=== PATIENT | male | born 1975 | race Caucasian/White ===

== ENCOUNTER 2018-10-03 07:49 | Emergency (ER) | payer MEDICAID, OTHER ==
[2018-10-03] MEDS ORDERED: LIDOCAINE 1%-EPI 1:100000 30 ML MDV SUBQ STA (08:20)
[2018-10-03] MEDS ORDERED: LIDOCAINE 1%-EPI 1:100000 30 ML MDV ONE (08:24)
[2018-10-03] MEDS ORDERED: cephALEXin 250 MG CAPSULE PO STA (08:52)
--- NOTE | 2018-10-03 08:54 | ED Physician Documentation ---
PD HPI SKIN - Stated complaint Stated Complaint: LUMP ON RT HIP - Chief complaint Chief Complaint: Wound - History obtained from History obtained from: Patient - History of Present Illness Timing - onset: How many days ago (2) Timing - details: Still present Location: Other (Right iliac region) Quality / character: Painful, Swelling Contributing factors: Other (IVDA) Similar symptoms before: Diagnosis (Past history of abscess in same area.) - Additional information Additional information: The patient is a 43-year-old male who has history of IV heroin abuse, who presents with painful swelling at his right iliac region. It began swelling 2 days ago and has rapidly increased since that time. He denies fever, chills, abdominal pain, nausea or vomiting. He has a history of similar swelling about 2 months ago, culminating in spontaneous drainage of an abscess. He denies history of MRSA. Review of Systems Constitutional: denies: Fever, Chills Throat: denies: Sore throat Cardiac: denies: Chest pain / pressure Respiratory: denies: Dyspnea, Cough GI: denies: Abdominal Pain, Nausea, Vomiting Skin: reports: Other (Abscess) Musculoskeletal: reports: Extremity swelling (Right iliac region.). denies: Back pain Neurologic: denies: Focal weakness, Numbness PD PAST MEDICAL HISTORY - Past Medical History Cardiovascular: None Endocrine/Autoimmune: None - Past Surgical History Past Surgical History: Yes Ortho: Spine surgery - Present Medications Home Medications: Ambulatory Orders Medication Instructions Recorded Confirmed cephALEXin [Cephalexin] 500 mg PO TID #15 tablet 10/03/18 - Allergies Allergies/Adverse Reactions: Allergies Allergy/AdvReac Type Severity Reaction Status Date / Time acetaminophen AdvReac upset Verified 10/03/18 08:05 stomach - Social History Does the pt smoke?: Yes Smoking Status: Current every day smoker Does the pt drink ETOH?: Yes Does the pt have substance abuse?: Yes Substance Use and Type: Heroin - Immunizations Immunizations are current?: Yes - POLST Patient has POLST: No PD ED PE NORMAL - Vitals Vital signs reviewed: Yes (Hypertensive) - General General: Alert and oriented X 3, Well developed/nourished - HEENT HEENT: Atraumatic - Neck Neck: No adenopathy - Cardiac Cardiac: RRR - Respiratory Respiratory: No respiratory distress, Clear bilaterally - Abdomen Abdomen: Soft, Non tender - Back Back: No CVA TTP - Derm Derm: No rash, Other (Large swollen area over right iliac wing, with associated fluctuance and tenderness to palpation.) - Extremities Extremities: No edema, No calf tenderness / cord - Neuro Neuro: Alert and oriented X 3, No motor deficit, No sensory deficit Results - Vitals Vitals: Oxygen O2 Source Room air - Labs Labs: Microbiology 10/03/18 08:35 Wound Culture - Preliminary Abscess Procedures - Abscess I&D (location) right hip Preparation: Betadine, Lidocaine 1%, With epi Incision: Incised with scalpel, Needle aspiration, Purulent drainage, Loculations broken, Irrigated, Packed, Culture obtained Other: Pt tolerated well, Dressing applied, Antibiotic prescribed PD MEDICAL DECISION MAKING - ED course Complexity details: considered differential, d/w patient ED course: The patient's presentation is significant for abscess over the right iliac wing, associated with heroin addiction. There is no clinical evidence of systemic infection. Treatment in the emergency department included incision and drainage of the abscess, and administration of cephalexin 500 mg orally. He is being discharged with prescription for cephalexin. I offered consultation with medical claims manager to address his heroin addiction, but he declined. I discussed with him the expected course of healing, antibiotic treatment and outpatient follow-up, as well as potentially worrisome signs or symptoms that should prompt reevaluation in the emergency department. Departure - Departure Disposition: 01 Home, Self Care Clinical Impression: Abscess Condition: Stable Instructions: ED Abscess IandD Follow-Up: [facility] [Provider Group] Prescriptions: cephALEXin [Cephalexin] 500 mg PO TID #15 tablet Comments: Begin removing the packing from the abscess wound on the third day. Remove about 6 inches daily, until the packing has been completely removed. Take cephalexin 3 times daily as prescribed. You should follow-up with a primary physician. Call to schedule an appointment. Return to the emergency department if you develop increasing evidence of infection, if you need help removing the packing, or otherwise worsening symptoms. Discharge Date/Time: 10/03/18 09:13
[2018-10-03 09:00] VITALS: BP 140/95
== END 2018-10-03 09:13 | disposition home or self-care (01) ==
LOC: ED 07:49
DX: L02.415 Cutaneous abscess of right lower limb (principal); F11.10 Opioid abuse, uncomplicated
CPT/HCPCS: 10060; 87070; 87205; 99283; A9270

== ENCOUNTER 2019-10-12 13:24 | Outpatient (CLI) | payer OTHER, MEDICAID ==
--- NOTE | 2019-10-13 13:32 | XRAY Report ---
Reason: NECK BACK PAIN, CERVICAL THORACIC SPINE Procedure Date: 10/12/2019 Accession Number: [id number] / [id number] Procedure: XRS - Thoracic Spine 3 View CPT Code: Final Report FULL RESULT: EXAM: THORACIC SPINE RADIOGRAPHY EXAM DATE: 10/12/2019 02:04 PM. CLINICAL HISTORY: NECK BACK PAIN, CERVICAL THORACIC SPINE. COMPARISON: None. TECHNIQUE: 3 views. FINDINGS: Alignment: Normal. No spondylolisthesis or scoliosis. Bones: No fractures or bone lesions. Disks: Multilevel mild disk height loss. Soft Tissues: Normal. The visualized lungs and cardiomediastinal silhouette are normal. IMPRESSION: 1. No evidence for acute thoracic spine fractures. 2. Multilevel mild degenerative disk disease noted. RADIA
--- NOTE | 2019-10-13 13:35 | XRAY Report ---
Reason: NECK BACK PAIN, CERVICAL THORACIC SPINE Procedure Date: 10/12/2019 Accession Number: [id number] / [id number] Procedure: XRS - Cervical Spine 2 View CPT Code: Final Report FULL RESULT: EXAM: CERVICAL SPINE RADIOGRAPHY EXAM DATE: 10/12/2019 02:04 PM. CLINICAL HISTORY: NECK BACK PAIN, CERVICAL THORACIC SPINE. COMPARISONS: XR CERVICAL SPINE 2 OR 3 VIEWS 04/06/2008 12:11 PM. TECHNIQUE: 3 views. FINDINGS: Alignment: Normal. No spondylolisthesis or scoliosis. Bones: The cervical vertebral bodies and posterior elements are well visualized from the skull base through C7-T1. No fractures or bone lesions. Disks: Normal. Disk heights are maintained. Facets: No degenerative disease. Soft Tissues: Normal. No prevertebral soft tissue swelling. The visualized lung apices are clear. IMPRESSION: Normal cervical spine radiography. RADIA
== END 2019-10-12 13:25 | disposition home or self-care (01) ==
LOC: DI.S 13:24
PROVIDERS: ATTEND Family Medicine
DX: M51.34 Other intervertebral disc degeneration, thoracic region (principal)
CPT/HCPCS: 72040; 72072

== ENCOUNTER 2022-02-01 16:01 | Outpatient (CLI) | payer MEDICAID | END 2022-02-01 16:02 | disposition home or self-care (01) | LOC: LAB.S 16:01 | PROVIDERS: ATTEND Physician Assistant | DX: Z53.9 Procedure and treatment not carried out, unspecified reason (principal) | CPT/HCPCS: 87902 ==

== ENCOUNTER 2022-02-06 09:07 | Outpatient (CLI) | payer MEDICAID | END 2022-02-06 09:08 | disposition home or self-care (01) | LOC: LAB.S 09:07 | PROVIDERS: ATTEND Physician Assistant | DX: B18.2 Chronic viral hepatitis C (principal) | CPT/HCPCS: 36415; 81599; 87522 ==

== ENCOUNTER 2023-06-25 18:51 | Inpatient (IN) | payer MEDICAID ==
[2023-06-25 19:13] LABS: BASOPHILS # (AUTO) 0.1 10^3/uL (0.0-0.1); BASOPHILS % (AUTO) 0.7 %; EOSINOPHILS # (AUTO) 0.2 10^3/uL (0.0-0.7); EOSINOPHILS % (AUTO) 1.2 %; LYMPHOCYTES # (AUTO) 1.7 10^3/uL (1.5-3.5); LYMPHOCYTES % (AUTO) 12.2 %; MEAN CORPUSCULAR HEMOGLOBIN 25.2 pg (27.0-31.0); MEAN CORPUSCULAR VOLUME 86.9 fL (80.0-94.0); MEAN PLATELET VOLUME 9.5 fL (7.4-11.4); MONOCYTES # (AUTO) 0.7 10^3/uL (0.0-1.0); MONOCYTES % (AUTO) 4.8 %; NEUTROPHILS % (AUTO) 80.6 %; PLT - PLATELET COUNT 687 10^3/uL (130-450); RED BLOOD COUNT 2.22 10^6/uL (4.70-6.10); RED CELL DISTRIBUTION WIDTH 18.1 % (12.0-15.0); WHITE BLOOD COUNT 13.7 x10^3/uL (4.8-10.8)
[2023-06-25 19:16] LABS: HGB - HEMOGLOBIN 5.6 g/dL (14.0-18.0)
[2023-06-25 19:17] LABS: HCT - HEMATOCRIT 19.3 % (42.0-52.0)
[2023-06-25 19:24] LABS: ALBUMIN 2.1 g/dL (3.2-5.5); ALBUMIN/GLOBULIN RATIO 0.6 (1.0-2.2); BILIRUBIN,TOTAL 0.1 mg/dL (0.2-1.0); CALCIUM 8.1 mg/dL (8.5-10.3); CREATININE 1.3 mg/dL (0.6-1.3); POTASSIUM 4.3 mmol/L (3.5-4.5); TOTAL PROTEIN 5.4 g/dL (6.4-8.9)
[2023-06-25 19:34] LABS: PARTIAL THROMBOPLASTIN TIME 32.6 secs (24.9-33.3)
[2023-06-25 19:38] LABS: INR 1.1 (0.8-1.2); PT - PROTHROMBIN TIME 11.5 secs (9.9-12.6)
--- NOTE | 2023-06-25 20:47 | ED Physician Documentation ---
History of Present Illness - Stated complaint Stated Complaint: ABNORMAL LAB WORK - Chief complaint Chief Complaint: Ext Problem - History obtained from History obtained from: Patient - History of Present Illness Timing: Today Pain level max: 0 Pain level now: 0 - Additonal information Additional information: Patient is a 48-year-old male who presents to the emergency department complaining of a low hemoglobin found at the walk-in clinic earlier today. He states that he has noticed dark stools for the past several weeks. He states that as a child he had a colonoscopy and had polyps removed for bleeding. He has not had a colonoscopy since that time. He states that he has a remote history of hepatitis C, but on repeat testing with a returned materials inspector recently, he was found to have no evidence of hepatitis C infection and was told that his body had "fought it off". He denies any history of liver disease or kidney disease. He states that he has felt more fatigued and weaker than usual. He denies any alcohol use, but does use heroin. He did go to detox last week, but used heroin again this morning. No fevers. No chills. No abdominal pain, back pain. No dyspnea, hemoptysis. No emesis. No diarrhea. Patient does not take any medications at home. Review of Systems Constitutional: denies: Fever, Chills Nose: denies: Rhinorrhea / runny nose, Congestion Cardiac: denies: Chest pain / pressure, Palpitations Respiratory: denies: Dyspnea, Cough GI: denies: Abdominal Pain, Nausea, Vomiting, Diarrhea Skin: denies: Rash Musculoskeletal: denies: Neck pain, Back pain Neurologic: denies: Headache PD PAST MEDICAL HISTORY - Past Medical History Cardiovascular: None Endocrine/Autoimmune: None - Past Surgical History Past Surgical History: Yes Ortho: Spine surgery - Present Medications Home Medications: Ambulatory Orders Medication Instructions Recorded Confirmed No Known Home Medications 06/25/23 06/25/23 - Allergies Allergies/Adverse Reactions: Allergies Allergy/AdvReac Type Severity Reaction Status Date / Time acetaminophen AdvReac upset Verified 06/25/23 19:19 stomach - Social History Does the pt smoke?: Yes Smoking Status: Current every day smoker Does the pt drink ETOH?: Yes Does the pt have substance abuse?: Yes - Immunizations Immunizations are current?: Yes - POLST Patient has POLST: No PD ED PE NORMAL - Vitals Vital signs reviewed: Yes - General General: Alert and oriented X 3, No acute distress, Other (Pale appearing) - HEENT HEENT: Moist mucous membranes - Neck Neck: Supple, no meningeal sign - Cardiac Cardiac: RRR - Respiratory Respiratory: No respiratory distress, Clear bilaterally - Abdomen Abdomen: Soft, Non tender, Non distended - Rectal Rectal: Pt declined - Derm Derm: Warm and dry - Extremities Extremities: Other (1+ bilateral lower extremity edema.) - Neuro Neuro: Alert and oriented X 3 - Psych Psych: Normal mood, Normal affect Results - Vitals Vitals: Vital Signs - 24 hr 06/25/23 06/25/23 06/25/23 19:16 19:21 20:03 Heart Rate 102 H 94 98 Respiratory 18 17 18 Rate Blood Pressure 160/84 H O2 Saturation 97 95 100 06/25/23 20:33 Heart Rate 88 Respiratory 18 Rate Blood Pressure 155/90 H O2 Saturation 98 Oxygen O2 Source Room air - EKG (time done) 1936 EKG releavant findings:: EKG personally interpreted by author of this note. Relevant findings are: Rate: Rate (enter#) (94) Rhythm: NSR [place]: Normal Intervals: Normal [place] QRS: Normal Ischemia: Normal ST segments - Labs Labs: Laboratory Tests 06/25/23 06/25/23 06/25/23 19:05 19:05 19:05 WBC 13.7 H RBC 2.22 L Hgb 5.6 L* Hct 19.3 L* MCV 86.9 MCH 25.2 L MCHC 29.0 L RDW 18.1 H Plt Count 687 H MPV 9.5 Neut # (Auto) 11.0 H Lymph # (Auto) 1.7 Valley # (Auto) 0.7 Eos # (Auto) 0.2 Baso # (Auto) 0.1 Absolute Nucleated RBC 0.00 Nucleated RBC % 0.0 PT INR APTT Sodium 137 Potassium 4.3 Chloride 107 Carbon Dioxide 25 Anion Gap 5.0 L BUN 22 H Creatinine 1.3 Estimated GFR (MDRD) 58 L Glucose 119 H Calcium 8.1 L Total Bilirubin 0.1 L AST 12 ALT 10 Alkaline Phosphatase 88 Total Protein 5.4 L Albumin 2.1 L Globulin 3.3 Albumin/Globulin Ratio 0.6 L Lipase 14 Blood Type A POSITIVE Blood Type Recheck Antibody Screen NEGATIVE Crossmatch IS Only See Detail 06/25/23 06/25/23 19:05 20:13 WBC RBC Hgb Hct MCV MCH MCHC RDW Plt Count MPV Neut # (Auto) Lymph # (Auto) Valley # (Auto) Eos # (Auto) Baso # (Auto) Absolute Nucleated RBC Nucleated RBC % PT 11.5 INR 1.1 APTT 32.6 Sodium Potassium Chloride Carbon Dioxide Anion Gap BUN Creatinine Estimated GFR (MDRD) Glucose Calcium Total Bilirubin AST ALT Alkaline Phosphatase Total Protein Albumin Globulin Albumin/Globulin Ratio Lipase Blood Type Blood Type Recheck A POSITIVE Antibody Screen Crossmatch IS Only PD Medical Decision Making - ED course Complexity details: reviewed results, re-evaluated patient, considered differential, d/w patient, d/w x ray consultant ED course: Discussed the case with Dr. Lazcano, general surgery on-call, will plan for endoscopy/colonoscopy tomorrow. Discussed the case with the telehospitalist who accepts. Patient was given IV Protonix, IV fluids. Blood products ordered. Abdomen is soft, nontender nondistended. Unclear etiology of the low protein levels? Patient with significant anemia, hemoglobin 5.6. White blood cell count and platelets are normal. Coags are normal. LFTs do not show any significant abnormalities. Urinalysis is pending at the time of admission. This document was made in part using voice recognition software. While efforts are made to proofread this document, sound alike and grammatical errors may occur. Departure - Departure Disposition: [address] [facility] DC/Xfer Clinical Impression: Hypoalbuminemia Anemia Qualifiers: Anemia type: unspecified type Qualified Code(s): D64.9 - Anemia, unspecified GI bleed Qualifiers: GI bleed type/associated pathology: unspecified gastrointestinal hemorrhage type Qualified Code(s): K92.2 - Gastrointestinal hemorrhage, unspecified Condition: Stable
[2023-06-25] MEDS ORDERED: PANTOPRAZOLE 40 MG VIAL IVP STA (21:00)
[2023-06-25] MEDS ORDERED: ONDANSETRON 4 MG/2 ML VIAL IVP PRN (21:04)
--- NOTE | 2023-06-25 21:12 | HISTORY & PHYSICAL EXAMINATION ---
Chief Complaint - Chief Complaint Chief Complaint: Anemia History of Present Illness - History of Present Illness HPI Comment/Other: 48 Y old male with PMH heroin abuse, Hep C was sent to ER from walk in clinic due to anemia. Pt c/o weakness and dizziness and dark coloured stool. He went to walk in clinic where labs showed Hemoglobin 5. C/O SOB. Denies chest pain, fever, TY, nausea, vomiting, symptoms On presentaion, Afebrile. BP accelerated Labs showed WBC 12, Hb 5.6 Type and screen done In ER , pt was given protonix iv As per ER physician (Dr Lazaro), he consulted with surgeon electronic train control technician and plan is for EGD in am Pt is admitted due to GI bleeding, melena, acute blodd loss anemia History - Past Medical History Cardiovascular: reports: None Endocrine/Autoimmune: reports: None MRSA Hx?: Yes - Past Surgical History Ortho: reports: Spine surgery - POLST Patient has POLST: No Meds/Allgy - Home Medications Home Medications: Ambulatory Orders Medication Instructions Recorded Confirmed No Known Home Medications 06/25/23 06/25/23 - Allergies Allergies/Adverse Reactions: Allergies Allergy/AdvReac Type Severity Reaction Status Date / Time acetaminophen AdvReac upset Verified 06/25/23 19:19 stomach Review of Systems - Other Findings Other Findings: 10 point systems were reviewed and were negative except mentioed in HPI Exam - Vital Signs Vital Signs: Vital Signs x48h Pulse Resp BP Pulse Ox 06/25/23 20:33 88 18 155/90 H 98 06/25/23 20:03 98 18 100 06/25/23 19:21 94 17 95 06/25/23 19:16 102 H 18 160/84 H 97 - Physical Exam General Appearance: positive: No acute distress Eyes Bilateral: positive: Normal inspection ENT: positive: ENT inspection nml Neck: positive: Nml inspection Respiratory: positive: Chest non-tender Cardiovascular: positive: Regular rate & rhythm Abdomen: positive: Non-tender, Nml bowel sounds Skin: positive: No rash Extremities: positive: No pedal edema Neurologic/Psychiatric: positive: Oriented x3, Motor nml Conclusion/Plan - Lab Results Fish Bones: 06/25/23 19:05 06/25/23 19:05 - Other Other Results/Comments: A: GI bleed Melena Acute blood loss anemia Leukocytsis H/O heroin abuse Hep C Plan: Admit in ICU NPO Start protonix gtt Transfuse 2 units of PRBC Monitor H/H As per ER physician (Dr Lazaro) he has consulted with surgeon electronic train control technician and plan is for EGD in am Repeat CBC, BMP in am Monitor for withdrawl DVT prophylaxic: SCD Full code pt is admitted as inpatient as more than 2 midnight stay is expected
[2023-06-25] MEDS ORDERED: PANTOPRAZOLE 40 MG VIAL ONE (21:29)
[2023-06-25] MEDS: PANTOPRAZOLE 80 MG in SODIUM CHLORIDE 0.9% 100ML 100 ML IV SCH (21:36)
[2023-06-25 22:57] LABS: BILIRUBIN,URINE NEGATIVE (NEGATIVE); GLUCOSE, URINE (UA) NEGATIVE (NEGATIVE); KETONES,URINE (UA) NEGATIVE (NEGATIVE); LEUKOCYTE ESTERASE, URINE NEGATIVE (NEGATIVE); NITRITE,URINE NEGATIVE (NEGATIVE); OCCULT BLOOD,URINE SMALL (NEGATIVE); PROTEIN,URINE >=300 mg/dL (NEGATIVE); UROBILINOGEN,URINE 0.2 (NORMAL) E.U./dL (NORMAL)
[2023-06-25 23:01] LABS: CLARITY,URINE CLEAR (CLEAR)
[2023-06-25 23:05] LABS: BACTERIA,URINE None Seen /HPF (None Seen); RBC,URINE 0-5 /HPF (0-5); SQUAMOUS EPITHELIAL CELL,UR NONE SEEN (<= Few); WBC,URINE 0-3 /HPF (0-3)
[2023-06-25 23:06] LABS: CASTS, URINE 6-10 Granular Casts /LPF
[2023-06-26] MEDS: NICOTINE 21 MG PATCH TOP SCH ×2 (00:25→11:00)
[2023-06-26] MEDS: SODIUM CHLORIDE FLUSH 0.9% 10 ML SYRINGE IVP SCH ×5 (00:26→22:57)
[2023-06-26 05:38] LABS: BASOPHILS # (AUTO) 0.1 10^3/uL (0.0-0.1); BASOPHILS % (AUTO) 0.7 %; EOSINOPHILS # (AUTO) 0.3 10^3/uL (0.0-0.7); EOSINOPHILS % (AUTO) 2.8 %; LYMPHOCYTES # (AUTO) 2.7 10^3/uL (1.5-3.5); LYMPHOCYTES % (AUTO) 28.3 %; MEAN CORPUSCULAR HEMOGLOBIN 24.9 pg (27.0-31.0); MEAN CORPUSCULAR HGB CONC 28.3 g/dL (32.0-36.0); MEAN CORPUSCULAR VOLUME 87.8 fL (80.0-94.0); MEAN PLATELET VOLUME 9.7 fL (7.4-11.4); MONOCYTES # (AUTO) 0.7 10^3/uL (0.0-1.0); MONOCYTES % (AUTO) 7.3 %; NEUTROPHILS # (AUTO) 5.7 10^3/uL (1.5-6.6); NEUTROPHILS % (AUTO) 60.5 %; PLT - PLATELET COUNT 567 10^3/uL (130-450); RED BLOOD COUNT 1.89 10^6/uL (4.70-6.10); RED CELL DISTRIBUTION WIDTH 18.3 % (12.0-15.0); WHITE BLOOD COUNT 9.4 x10^3/uL (4.8-10.8)
[2023-06-26 05:42] LABS: HGB - HEMOGLOBIN 4.7 g/dL (14.0-18.0)
[2023-06-26 05:43] LABS: HCT - HEMATOCRIT 16.6 % (42.0-52.0)
[2023-06-26 05:56] LABS: VBG PH 7.446 (7.31-7.41)
[2023-06-26 05:57] LABS: CALCIUM, IONIZED 1.03 mmol/L (1.15-1.33)
[2023-06-26 06:11] LABS: MAGNESIUM 1.9 mg/dL (1.7-2.3); PHOSPHORUS 4.2 mg/dL (2.5-5.0)
[2023-06-26 06:12] LABS: CALCIUM 7.5 mg/dL (8.5-10.3); CREATININE 1.2 mg/dL (0.6-1.3); POTASSIUM 4.2 mmol/L (3.5-4.5)
[2023-06-26] MEDS ORDERED: CALCIUM GLUC 1,000MG/50ML-NACL 1,000 MG/50 ML BAG IV ONE ×2 (06:29→13:54)
--- NOTE | 2023-06-26 06:48 | PROVIDER PROGRESS NOTE ---
Inverted Block Operator Note - Inverted Block Operator Note Inverted Block Operator Note: RNB paged "Pt admitted for abnl lab work. Critical lab value: Hgb 4.7,., Hct 16.6. Pt received 1u PRBC last night (ED order).." Hgb/Hct confirmed 4.7. transfuse two units stat. day team to followup Chichi Reece DO Internal Medicine Sound
--- NOTE | 2023-06-26 08:51 | ANESTHESIA PROCEDURE NOTE ---
Anesth Central Line Template - Central Line Central Line Preparation: Consent Obtained, Time out completed, Ultrasound used, Sterile prep and drape Central line location: Right IJ Central line type: Triple lumen Central line catheter tip site resides: Superior vena cava (SVC) Central line aftercare: Chlorhexidine disc placed, Secured, Placement confirmed, No complications, Pt tolerated well Other Info/Details: Right neck prepped with chlorohexadine. Full sterile drape, gown, gloves mask utilized. Right neck skin localized with 5ml of 1% lidocaine. #18G needle inserted under ultrasound guidance and directed towards right IJ vein, positive aspiration of blood. Wire advanced with ease and placement in the right IJ confirmed with ultrasound. After dilation, a triple lumen catheter was inserted and placed at 18 cm. All 3 ports aspirate blood and flush with ease. Line sutured in place. Chest xray shows tip in the SVC. Patient tolerated well.
--- NOTE | 2023-06-26 09:36 | XRAY Report ---
PROCEDURE: Chest for Line Placement INDICATIONS: New central line TECHNIQUE: One view of the chest was acquired. COMPARISON: None. FINDINGS: Surgical changes and devices: None. Lungs and pleura: No pleural effusions or pneumothorax. Lungs are clear. Mediastinum: Mediastinal contours appear normal. Heart size is normal. Bones and chest wall: No suspicious bony lesions. Overlying soft tissues appear unremarkable. IMPRESSION: No acute cardiopulmonary process. Reviewed by: Kristine Smith MD on 06/26/2023 9:34 AM PDT Approved by: Kristine Smith MD on 06/26/2023 9:34 AM PDT Station ID: [id number]
[2023-06-26] MEDS ORDERED: PROPOFOL 500 MG/50 ML 500 MG/50 ML VIAL ONE (09:41)
--- NOTE | 2023-06-26 09:41 | CONSULTATION NOTE ---
Referring Provider Name of Referring Provider:: Carlitos Eagle) Consult Date: 06/26/23 Chief Complaint - Chief Complaint Chief Complaint: I feel awful History of Present Illness - Admitted From Admitted From:: ED - History Obtained From Records Reviewed: yes History obtained from: patient, ED provider, chart - History of Present Illness HPI Comment/Other: This is a 48-year-old gentleman with a 1 week history of intermittent melanotic stool. He also reports feeling very fatigued, occasionally lightheaded with activity, and "just terrible" for the last 2 weeks. He denies any heartburn or abdominal pain. He denies nausea or vomiting at baseline, but did have some nausea and vomiting while in detox last week. He has intermittent constipation and diarrhea depending on how much opiates he has used in the last day. He reports a very remote history of colonoscopy as a child for gastrointestinal bleeding at which time he reports he had polyps removed. He has not had a colonoscopy as an adult. He denies any history of upper endoscopy, GERD, or heartburn. The patient endorses smoking 1 pack of cigarettes per day. He denies any alcohol use. He endorses occasional NSAID use, but less than 1 pill/week on average. He denies taking aspirin or any other blood thinning medications. He has a longstanding history of opiate use disorder, and injects heroin on a daily basis. He attempted to go to detox to treat his opiate use disorder last , but was unable to tolerate withdrawal symptoms and left on Saturday. He also notes he started experiencing severe bilateral lower extremity edema while in detox last week, which she feels is improving. The patient voices concern about going into withdrawal again while in the hospital. History - Past Medical History Cardiovascular: reports: None Endocrine/Autoimmune: reports: None GI: reports: GI bleed (Remote, as a child) MRSA Hx?: Yes - Past Surgical History General: reports: Colonoscopy (As a child) Ortho: reports: Spine surgery - Family & Social History Family History Comment/Other: Patient denies any significant family history of cancer, heart attack, diabetes, or stroke. Living arrangement: Unknown - Substance History Abuse: Recurrent use of substance despite neg consequences: Opioid Dependence: Experiences withdrawal or developed tolerances: Opioid Tobacco Details: Cigarettes (1 pack/day) - POLST Patient has POLST: No Meds/Allgy - Home Medications Home Medications: Ambulatory Orders Medication Instructions Recorded Confirmed No Known Home Medications 06/25/23 06/25/23 - Allergies Allergies/Adverse Reactions: Allergies Allergy/AdvReac Type Severity Reaction Status Date / Time acetaminophen AdvReac upset Verified 06/25/23 19:19 stomach Review of Systems - Constitutional Constitutional: reports: Other (A complete 10 point review of symptoms is otherwise negative except for that noted in HPI and PMH.) Exam - Vital Signs Vital Signs: Vital Signs x48h Temp Pulse Resp BP Pulse Ox 06/26/23 09:00 86 10 L 154/106 H 99 06/26/23 08:00 36.9 C 79 11 L 138/60 H 98 06/26/23 07:00 90 10 L 152/85 H 98 06/26/23 06:00 36.8 C 86 10 L 145/78 H 97 06/26/23 05:00 73 10 L 122/69 98 06/26/23 04:00 81 15 122/74 96 06/26/23 03:00 80 13 134/82 H 97 06/26/23 02:58 36.6 C 81 13 134/82 H 97 06/26/23 02:00 85 14 137/74 H 96 - Physical Exam General Appearance: positive: No acute distress, Alert Eyes Bilateral: positive: Normal inspection, PERRL, EOMI ENT: positive: No signs of dehydration Neck: positive: Trachea midline Respiratory: positive: No respiratory distress Cardiovascular: positive: Regular rate & rhythm Peripheral Pulses: positive: 2+ Abdomen: positive: Non-tender. negative: Guarding, Rebound Rectal: positive: Stool - heme POS Skin: positive: No rash Extremities: positive: Non-tender, Full ROM, Pedal edema (2+ B LE) Neurologic/Psychiatric: positive: Oriented x3 Conclusion and Plan - Lab Results Laboratory Results 06/26/23 05:28: VBG pH 7.446 H, Ionized Calcium 1.03 L 06/26/23 05:28: Phosphorus 4.2, Magnesium 1.9 06/26/23 05:28: Sodium 138, Potassium 4.2, Chloride 108, Carbon Dioxide 26, Anion Gap 4.0 L, BUN 20, Creatinine 1.2, Estimated GFR (MDRD) 64 L, Glucose 122 H, Calcium 7.5 L 06/26/23 05:28: WBC 9.4, RBC 1.89 L, Hgb 4.7 L*, Hct 16.6 L*, MCV 87.8, MCH 24.9 L, MCHC 28.3 L, RDW 18.3 H, Plt Count 567 H, MPV 9.7, Neut # (Auto) 5.7, Lymph # (Auto) 2.7, [place] # (Auto) 0.7, Eos # (Auto) 0.3, Baso # (Auto) 0.1, Absolute Nucleated RBC 0.00, Nucleated RBC % 0.0 06/25/23 22:15: Nasal Screen MRSA (PCR) NEGATIVE 06/25/23 22:15: Urine Color YELLOW, Urine Clarity CLEAR, Urine pH 6.0, Ur Specific [place] 1.025, Urine Protein >=300 H, Urine Glucose (UA) NEGATIVE, Urine Ketones NEGATIVE, Urine Occult Blood SMALL H, Urine Nitrite NEGATIVE, Urine Bilirubin NEGATIVE, Urine Urobilinogen 0.2 (NORMAL), Ur Leukocyte Esterase NEGATIVE, Urine RBC 0-5, Urine WBC 0-3, Ur Squamous Epith Cells NONE SEEN, Urine Bacteria None Seen, Urine Casts 6-10 Granular Casts, Ur Microscopic Review INDICATED, Urine Culture Comments NOT INDICATED 06/25/23 20:13: Blood Type Recheck A POSITIVE 06/25/23 19:05: PT 11.5, INR 1.1, APTT 32.6 06/25/23 19:05: Blood Type A POSITIVE, Antibody Screen NEGATIVE, Crossmatch IS Only See Detail 06/25/23 19:05: Sodium 137, Potassium 4.3, Chloride 107, Carbon Dioxide 25, Anion Gap 5.0 L, BUN 22 H, Creatinine 1.3, Estimated GFR (MDRD) 58 L, Glucose 119 H, Calcium 8.1 L, Total Bilirubin 0.1 L, AST 12, ALT 10, Alkaline Phosphatase 88, Total Protein 5.4 L, Albumin 2.1 L, Globulin 3.3, Albumin/Globulin Ratio 0.6 L, Lipase 14 06/25/23 19:05: WBC 13.7 H, RBC 2.22 L, Hgb 5.6 L*, Hct 19.3 L*, MCV 86.9, MCH 25.2 L, MCHC 29.0 L, RDW 18.1 H, Plt Count 687 H, MPV 9.5, Neut # (Auto) 11.0 H, Lymph # (Auto) 1.7, Jay # (Auto) 0.7, Eos # (Auto) 0.2, Baso # (Auto) 0.1, Absolute Nucleated RBC 0.00, Nucleated RBC % 0.0 - Consultation Note Consultation Note: This is a 48-year-old male with: 1. Gastrointestinal bleeding with severe anemia The patient has Hemoccult positive stools and reports a history of melena for the last 1 week I suspect suspect the patient's had symptoms for far longer than this given how well compensated he is with his very low hemoglobin. His risk factors for upper GI bleeding including tobacco use and NSAID use. He denies any alcohol use. He denies any history of upper gastrointestinal bleeding. -The patient has been transfused 1 unit of blood. I suspect he will need at least 3 additional units given his hemoglobin on admission. -I discussed the risks, benefits, and alternatives of upper endoscopy including bleeding and perforation. We discussed that this procedure would help us with his diagnosis and treatment plan, but will not change how he is feeling. He voiced understanding, his questions were answered, and he wished to proceed. The patient signed a consent. Plan for emergent upper endoscopy this morning. -I would like the patient to remain n.p.o. until after his procedure. Further diet recommendations pending endoscopic findings. -Agree with IV PPI usage. 2. Opiate use disorder As per primary team We will work to manage his withdrawal symptoms as they arise 3. Bilateral lower extremity edema, low protein -As per primary team Thank you for consulting me in the care of this patient. I will continue to follow him closely.
[2023-06-26] MEDS ORDERED: MIDAZOLAM 2 MG/2 ML VIAL ONE (09:43)
[2023-06-26] MEDS ORDERED: fentaNYL 100 MCG/2 ML VIAL ONE (09:44)
--- NOTE | 2023-06-26 09:51 | ANESTHESIA ---
Pre-Anesthesia VS, & Labs - Diagnosis Anemia, GI Bleed - Procedure EGD Vital Signs: Temp Pulse Resp BP Pulse Ox O2 Flow Rate 36.4 C L 81 14 154/106 H 96 06/26/23 09:41 06/26/23 09:41 06/26/23 09:41 06/26/23 09:41 06/26/23 09:41 Height: 6 ft 3 in Weight (kg): 106.5 kg Body Mass Index: 29.3 BMI Classification: Overweight - NPO >8 hours - Lab Results Current Lab Results: Laboratory Tests 06/26/23 05:28: VBG pH 7.446 H, Ionized Calcium 1.03 L 06/26/23 05:28: Phosphorus 4.2, Magnesium 1.9 06/26/23 05:28: Sodium 138, Potassium 4.2, Chloride 108, Carbon Dioxide 26, A nion Gap 4.0 L, BUN 20, Creatinine 1.2, Estimated GFR (MDRD) 64 L, Glucose 122 H , Calcium 7.5 L 06/26/23 05:28: WBC 9.4, RBC 1.89 L, Hgb 4.7 L*, Hct 16.6 L*, MCV 87.8, MCH 24.9 L, MCHC 28.3 L, RDW 18.3 H, Plt Count 567 H, MPV 9.7, Neut # (Auto) 5.7, Lymph # (Auto) 2.7, [place] # (Auto) 0.7, Eos # (Auto) 0.3, Baso # (Auto) 0.1, Absolute Nuc leated RBC 0.00, Nucleated RBC % 0.0 06/25/23 20:13: Blood Type Recheck A POSITIVE 06/25/23 19:05: PT 11.5, INR 1.1, APTT 32.6 06/25/23 19:05: Blood Type A POSITIVE, Antibody Screen NEGATIVE, Crossmatch IS Only See Detail 06/25/23 19:05: Sodium 137, Potassium 4.3, Chloride 107, Carbon Dioxide 25, Anion Gap 5.0 L, BUN 22 H, Creatinine 1.3, Estimated GFR (MDRD) 58 L, Glucose 119 H, Calcium 8.1 L, Total Bilirubin 0.1 L, AST 12, ALT 10, Alkaline Phos phatase 88, Total Protein 5.4 L, Albumin 2.1 L, Globulin 3.3, Albumin/Globulin Ratio 0.6 L, Lipase 14 06/25/23 19:05: WBC 13.7 H, RBC 2.22 L, Hgb 5.6 L*, Hct 19.3 L*, MCV 86.9, MCH 25.2 L, MCHC 29.0 L, RDW 18.1 H, Plt Count 687 H, MPV 9.5, Neut # (Auto) 11.0 H, Lymph # (Auto) 1.7, [place] # (Auto) 0.7, Eos # (Auto) 0.2, Baso # (Auto) 0.1, Absolute Nucleated RBC 0.00, Nucleated RBC % 0.0 Lab results reviewed: Yes Fish Bones: 06/26/23 05:28 06/26/23 05:28 Home Medications and Allergies Home Medications: Ambulatory Orders No Known Home Medications 06/25/23 Active Medications Pantoprazole Sodium 80 mg/ (Sodium Chloride) 100 mls @ 10 mls/hr IV .Q10H [facility] Last Infusion: 06/26/23 09:19 Dose: 10 mls/hr Nicotine (Nicotine 21 Mg Patch) 1 patch TOP DAILY [facility] Last Admin: 06/26/23 00:25 Dose: 1 patch Ondansetron HCl (Ondansetron 4 Mg/2 Ml Vial) 4 mg IVP Q6HR PRN PRN Reason: Nausea / Vomiting Last Admin: 06/25/23 21:32 Dose: 4 mg Sodium Chloride (Sodium Chloride Flush 0.9% 10 Ml Syringe) 10 ml IVP 0100,0900,1700 [facility] Last Admin: 06/26/23 00:26 Dose: 10 ml Sodium Chloride (Sodium Chloride Flush 0.9% 10 Ml Syringe) 10 ml IVP PRN PRN PRN Reason: NEEDED PER PROVIDER ORDERS No Known Home Medications 06/25/23 Allergies/Adverse Reactions: Allergies Allergy/AdvReac Type Severity Reaction Status Date / Time acetaminophen AdvReac upset Verified 06/25/23 19:19 stomach Anes History & Medical History - Anesthetic History Anesthesia Complications: reports: No previous complications - Medical History Cardiovascular: reports: None Pulmonary: reports: None Gastrointestinal: reports: GI bleed, Hepatitis (Hep C positive) Urinary: reports: None Neuro: reports: None Musculoskeletal: reports: None Endocrine/Autoimmune: reports: None Blood Disorders: reports: Anemia Skin: reports: None Smoking Status: Current every day smoker (1 pack per day) Psychosocial: reports: Opioid (Heroin user, last used 06/25/23) History of Cancer?: No - Surgical History General: reports: Colonoscopy (As a child) Orthopedic: reports: Spine surgery Exam General: Alert, Oriented x3, Cooperative, No acute distress Dental: WNL Mouth Openin Fingerbreadth Neck Mobility: Normal Mallampati classification: III Thyromental Distance: 4-6 cm Mental/Cognitive Status: Alert/Oriented X3, Normal for patient Plan Anesthesia Type: General, Total IV Consent for Procedure(s) Verified and Reviewed: Yes Code Status: Attempt Resuscitation ASA classification: 4-Incapacitating disease Is this case an emergency?: Yes
--- NOTE | 2023-06-26 11:14 | ANESTHESIA POST OP EVALUATION ---
Anesthesia Post Eval - Post Anesthesia Eval Vitals: Last Vital Signs Temp 36.4 C L 06/26/23 11:00 Pulse 81 06/26/23 11:00 Resp 19 06/26/23 11:00 BP 136/73 H 06/26/23 11:00 Pulse Ox 99 06/26/23 11:00 O2 Flow Rate CV Function Including HR & BP: Stable Pain Control: Satisfactory Nausea & Vomiting: Negative Mental Status: Baseline Respiratory Status: Airway Patent Hydration Status: Satisfactory Anesthesia Complications: None
[2023-06-26] MEDS: SODIUM CHLORIDE FLUSH 0.9% 10 ML SYRINGE IVP PRN ×2 (12:30→13:23)
[2023-06-26 12:37] LABS: CALCIUM, IONIZED 1.09 mmol/L (1.15-1.33); VBG PH 7.42 (7.31-7.41)
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
[2023-06-26] MEDS: PANTOPRAZOLE 80 MG in SODIUM CHLORIDE 0.9% 100ML 100 ML IV SCH (13:02)
[2023-06-26 13:33] LABS: MEAN CORPUSCULAR HEMOGLOBIN 25.3 pg (27.0-31.0); MEAN CORPUSCULAR HGB CONC 29.1 g/dL (32.0-36.0); MEAN CORPUSCULAR VOLUME 87.1 fL (80.0-94.0); MEAN PLATELET VOLUME 9.3 fL (7.4-11.4); RED BLOOD COUNT 2.17 10^6/uL (4.70-6.10); RED CELL DISTRIBUTION WIDTH 17.3 % (12.0-15.0); WHITE BLOOD COUNT 7.8 x10^3/uL (4.8-10.8)
[2023-06-26 13:37] LABS: HCT - HEMATOCRIT 18.9 % (42.0-52.0); HGB - HEMOGLOBIN 5.5 g/dL (14.0-18.0)
[2023-06-26] MEDS ORDERED: PANTOPRAZOLE 40 MG TABLET PO SCH (14:00)
[2023-06-26 14:58] LABS: MUDS CUTOFF CONCENTRATIONS CUTOFF CONC BELOW:
[2023-06-26] MEDS ORDERED: BUPRENORPHINE/NALOXONE 8-2 MG TAB SL ONE (15:00)
[2023-06-26] MEDS ORDERED: BUPRENORPHINE/NALOXONE 8-2 MG TAB SL SCH (15:00)
--- NOTE | 2023-06-26 15:15 | Ultrasound Report ---
PROCEDURE: Abdomen Limited INDICATIONS: new anasarca, looking for cirrhosis TECHNIQUE: Real-time focused scanning was performed of the abdomen, with image documentation. COMPARISONS: None. FINDINGS: Liver measures 18 cm. No suspicious focal lesions. No overtly nodular contour. Suspected cholelithiasis versus small polyps largest measuring 6 to 7 mm. CBD measures 5 to 6 mm. Pancreas is not well seen due to bowel gas. Right kidney measures 12 cm. Proximal aorta measures 2 cm. IVC is patent. IMPRESSION: No late findings of cirrhosis on imaging. Possible cholelithiasis and/or small polyps, measuring up to 6 to 7 mm. Consider 12 month ultrasound follow-up. Reviewed by: Rk Pacheco MD on 06/26/2023 3:13 PM PDT Approved by: Rk Pacheco MD on 06/26/2023 3:13 PM PDT Station ID: [id number]
[2023-06-26 15:18] LABS: AMPHETAMINE SCREEN,URINE NEGATIVE (NEGATIVE); BARBITURATE SCREEN,UR NEGATIVE (NEGATIVE); BENZODIAZEPINES SCREEN, URINE NEGATIVE (NEGATIVE); COCAINE SCREEN URINE NEGATIVE (NEGATIVE); METHADONE SCREEN, URINE NEGATIVE (NEGATIVE); METHAMPHETAMINES SCREEN, URINE NEGATIVE (NEGATIVE); OPIATE SCREEN, URINE POSITIVE (NEGATIVE); OXYCODONE SCREEN, URINE NEGATIVE (NEGATIVE); PROPOXYPHENE SCREEN, URINE NEGATIVE (NEGATIVE); THC CANNABINOID SCREEN, URINE NEGATIVE (NEGATIVE); TRICYCLIC ANTIDEPRESSANT,URINE NEGATIVE (NEGATIVE)
[2023-06-26] MEDS: BUPRENORPHINE/NALOXONE 8-2 MG TAB SL PRN ×3 (16:49→23:58)
[2023-06-26 17:13] LABS: FECAL OCCULT BLOOD (FIT) POSITIVE (NEGATIVE)
--- NOTE | 2023-06-26 17:40 | PHARMACY PROGRESS NOTE ---
- Best Possible Medication History Admit Date and Time: 06/25/232103 Processed by: Pharmacy Medication History completed: Yes Patient Interview: Pt unable to participate Secondary Source(s): Pharmacy records, Insurance records, Previous admit records MEDICATION HISTORY IS FROM [facility] FROM REHAB ADMISSION. PT WAS UNABLE TO GIVE A MEDICATION HISTORY As the person ultimately responsible for medication therapy, providers are able to order a medication from an existing home medication list in [facility] via the "Reconcile Routine" prior to Confirmation of that medication by product support specialist. Such practice is discouraged except when the physician, in their clinical judgment, deems that a medical need exists for a medication without regard to previous use.
[2023-06-26] MEDS: DEXMEDETOMIDINE 400 MCG/100 ML 100 ML IV PRN ×2 (19:33→23:42)
[2023-06-26] MEDS: hydrOXYzine 50 MG/ML VIAL IM PRN (19:58)
[2023-06-26] MEDS: PANTOPRAZOLE 40 MG TABLET PO SCH (20:04)
[2023-06-26] MEDS ORDERED: LIDOCAINE PATCH 5% TOP PRN (22:35)
[2023-06-26] MEDS ORDERED: MAG HYDROX/AL HYDROX/SIMETH 30 ML UDC PO PRN (22:37)
[2023-06-26] MEDS ORDERED: diazePAM INJ 5 MG/ML SYRINGE IVP STA (22:41)
[2023-06-27] MEDS: hydrOXYzine 50 MG/ML VIAL IM PRN (01:40)
[2023-06-27] MEDS: DEXMEDETOMIDINE 400 MCG/100 ML 100 ML IV PRN ×2 (02:28→05:35)
[2023-06-27] MEDS: BUPRENORPHINE/NALOXONE 8-2 MG TAB SL PRN ×4 (05:11→22:00)
[2023-06-27 05:24] LABS: ALBUMIN 1.9 g/dL (3.2-5.5); ALBUMIN/GLOBULIN RATIO 0.7 (1.0-2.2); BILIRUBIN,TOTAL 0.3 mg/dL (0.2-1.0); CALCIUM 7.9 mg/dL (8.5-10.3); CREATININE 1.2 mg/dL (0.6-1.3); MAGNESIUM 1.6 mg/dL (1.7-2.3); PHOSPHORUS 3.6 mg/dL (2.5-5.0); POTASSIUM 4.1 mmol/L (3.5-4.5); TOTAL PROTEIN 4.7 g/dL (6.4-8.9)
[2023-06-27 05:27] LABS: CALCIUM, IONIZED 1.1 mmol/L (1.15-1.33); VBG PH 7.391 (7.31-7.41)
[2023-06-27] MEDS: PRAMIPEXOLE 0.25 MG TABLET PO PRN ×3 (06:05→16:30)
[2023-06-27] MEDS: PANTOPRAZOLE 40 MG VIAL IVP SCH (06:13)
[2023-06-27] MEDS: SODIUM CHLORIDE FLUSH 0.9% 10 ML SYRINGE IVP PRN (06:13)
[2023-06-27 06:55] LABS: BASOPHILS % (AUTO) 0.4 %; EOSINOPHILS # (AUTO) 0.1 10^3/uL (0.0-0.7); HCT - HEMATOCRIT 24.6 % (42.0-52.0); HGB - HEMOGLOBIN 7.5 g/dL (14.0-18.0); LYMPHOCYTES # (AUTO) 2.3 10^3/uL (1.5-3.5); LYMPHOCYTES % (AUTO) 22.2 %; MEAN CORPUSCULAR HEMOGLOBIN 26.3 pg (27.0-31.0); MEAN CORPUSCULAR HGB CONC 30.5 g/dL (32.0-36.0); MEAN CORPUSCULAR VOLUME 86.3 fL (80.0-94.0); MONOCYTES # (AUTO) 0.8 10^3/uL (0.0-1.0); MONOCYTES % (AUTO) 7.8 %; NEUTROPHILS % (AUTO) 68.3 %; PLT - PLATELET COUNT 475 10^3/uL (130-450); RED BLOOD COUNT 2.85 10^6/uL (4.70-6.10); RED CELL DISTRIBUTION WIDTH 16.2 % (12.0-15.0); WHITE BLOOD COUNT 10.2 x10^3/uL (4.8-10.8)
[2023-06-27] MEDS ORDERED: MAGNESIUM SULFATE 2 GRAM 2 GM/50 ML BAG IV ONE (07:00)
[2023-06-27] MEDS ORDERED: CALCIUM GLUC 1,000MG/50ML-NACL 1,000 MG/50 ML BAG IV ONE (07:00)
[2023-06-27] MEDS: PANTOPRAZOLE 40 MG TABLET PO SCH (07:36)
--- NOTE | 2023-06-27 07:55 | PROVIDER PROGRESS NOTE ---
Subjective - General Admit Date: 06/25/23 Procedure Date: 06/26/23 Post Op Days: 1 Procedure Performed: EGD with biopsy - Other Other Information/Narrative: Patient in active opiate withdrawal. Resting comfortably this AM, but very anxious and uncomfortable overnight. Objective - Patient Data Reviewed Vital Signs: Yes Vital Signs: Vital Signs x48h Temp Pulse Resp BP Pulse Ox 06/27/23 07:00 55 L 17 100/89 H 06/27/23 06:00 62 20 121/81 H 98 06/27/23 05:00 50 L 19 120/76 06/27/23 04:31 36.4 C L 60 20 124/96 H 06/27/23 04:30 36.4 C L 60 20 124/96 H 06/27/23 04:00 66 19 143/91 H 06/27/23 03:00 59 L 22 149/96 H 06/27/23 02:00 36.5 C 59 H 135/96 H 98 06/27/23 01:45 36.5 C 75 22 114/73 100 06/27/23 01:32 36.4 C L 76 25 H 145/59 H 100 06/27/23 01:00 36.4 C L 76 22 133/81 H 96 06/27/23 00:51 36.4 C L 86 23 133/80 H 96 06/27/23 00:50 36.4 C L 86 23 133/80 H 96 06/27/23 00:00 36.5 C 81 27 H 136/80 H 97 Weight: Weight 06/25/23 06/26/23 06/27/23 23:59 23:59 23:59 Weight (kg) 106 kg 106.5 kg 105 kg Intake & Output: Intake and Output Totals x24h 06/25/23 06/26/23 06/27/23 23:59 23:59 23:59 Intake Total 23.667 2973.530 1646.949 Output Total 200 3220 2875 Balance -176.333 -246.470 -1228.051 - Lab Results Lab Results: 06/27/23 04:40 06/27/23 04:40 Other Lab Results: Lab Results x24hrs 06/27/23 06/27/23 06/27/23 Range/Units 04:40 04:40 04:40 WBC 10.2 (4.8-10.8) x10^3/uL RBC 2.85 L (4.70-6.10) 10^6/uL Hgb 7.5 L (14.0-18.0) g/dL Hct 24.6 L (42.0-52.0) % MCV 86.3 (80.0-94.0) fL MCH 26.3 L (27.0-31.0) pg MCHC 30.5 L (32.0-36.0) g/dL RDW 16.2 H (12.0-15.0) % Plt Count 475 H (130-450) 10^3/uL MPV 10.0 (7.4-11.4) fL Neut # (Auto) 7.0 H (1.5-6.6) 10^3/uL Lymph # (Auto) 2.3 (1.5-3.5) 10^3/uL [place] # (Auto) 0.8 (0.0-1.0) 10^3/uL Eos # (Auto) 0.1 (0.0-0.7) 10^3/uL Baso # (Auto) 0.0 (0.0-0.1) 10^3/uL Absolute Nucleated RBC 0.00 x10^3/uL Nucleated RBC % 0.0 /100WBC VBG pH 7.391 (7.31-7.41) Ionized Calcium 1.10 L (1.15-1.33) mmol/L Sodium 138 (135-145) mmol/L Potassium 4.1 (3.5-4.5) mmol/L Chloride 109 (101-111) mmol/L Carbon Dioxide 25 (21-32) mmol/L Anion Gap 4.0 L (6-13) BUN 16 (6-20) mg/dL Creatinine 1.2 (0.6-1.3) mg/dL Estimated GFR (MDRD) 64 L (>89) Glucose 125 H (74-104) mg/dL Calcium 7.9 L (8.5-10.3) mg/dL Phosphorus 3.6 (2.5-5.0) mg/dL Magnesium 1.6 L (1.7-2.3) mg/dL Total Bilirubin 0.3 (0.2-1.0) mg/dL AST 19 (10-42) IU/L ALT 9 L (10-60) IU/L Alkaline Phosphatase 74 (42-121) IU/L Total Protein 4.7 L (6.4-8.9) g/dL Albumin 1.9 L (3.2-5.5) g/dL Globulin 2.8 (2.1-4.2) g/dL Albumin/Globulin Ratio 0.7 L (1.0-2.2) Stl Occult Blood (IFOB) (NEGATIVE) Urine Opiates Screen (NEGATIVE) Ur Oxycodone Screen (NEGATIVE) Urine Methadone Screen (NEGATIVE) Ur Propoxyphene Screen (NEGATIVE) Ur Barbiturates Screen (NEGATIVE) Ur Tricyclics Screen (NEGATIVE) Ur Phencyclidine Scrn (NEGATIVE) Ur Amphetamine Screen (NEGATIVE) U Methamphetamines Scrn (NEGATIVE) U Benzodiazepines Scrn (NEGATIVE) Urine Cocaine Screen (NEGATIVE) U Cannabinoids Screen (NEGATIVE) Blood Type Antibody Screen Crossmatch IS Only 06/26/23 06/26/23 06/26/23 Range/Units 17:00 14:47 13:29 WBC 7.8 (4.8-10.8) x10^3/uL RBC 2.17 L (4.70-6.10) 10^6/uL Hgb 5.5 L* (14.0-18.0) g/dL Hct 18.9 L* (42.0-52.0) % MCV 87.1 (80.0-94.0) fL MCH 25.3 L (27.0-31.0) pg MCHC 29.1 L (32.0-36.0) g/dL RDW 17.3 H (12.0-15.0) % Plt Count 511 H (130-450) 10^3/uL MPV 9.3 (7.4-11.4) fL Neut # (Auto) (1.5-6.6) 10^3/uL Lymph # (Auto) (1.5-3.5) 10^3/uL [place] # (Auto) (0.0-1.0) 10^3/uL Eos # (Auto) (0.0-0.7) 10^3/uL Baso # (Auto) (0.0-0.1) 10^3/uL Absolute Nucleated RBC x10^3/uL Nucleated RBC % /100WBC VBG pH (7.31-7.41) Ionized Calcium (1.15-1.33) mmol/L Sodium (135-145) mmol/L Potassium (3.5-4.5) mmol/L Chloride (101-111) mmol/L Carbon Dioxide (21-32) mmol/L Anion Gap (6-13) BUN (6-20) mg/dL Creatinine (0.6-1.3) mg/dL Estimated GFR (MDRD) (>89) Glucose (74-104) mg/dL Calcium (8.5-10.3) mg/dL Phosphorus (2.5-5.0) mg/dL Magnesium (1.7-2.3) mg/dL Total Bilirubin (0.2-1.0) mg/dL AST (10-42) IU/L ALT (10-60) IU/L Alkaline Phosphatase (42-121) IU/L Total Protein (6.4-8.9) g/dL Albumin (3.2-5.5) g/dL Globulin (2.1-4.2) g/dL Albumin/Globulin Ratio (1.0-2.2) Stl Occult Blood (IFOB) POSITIVE A (NEGATIVE) Urine Opiates Screen POSITIVE H (NEGATIVE) Ur Oxycodone Screen NEGATIVE (NEGATIVE) Urine Methadone Screen NEGATIVE (NEGATIVE) Ur Propoxyphene Screen NEGATIVE (NEGATIVE) Ur Barbiturates Screen NEGATIVE (NEGATIVE) Ur Tricyclics Screen NEGATIVE (NEGATIVE) Ur Phencyclidine Scrn NEGATIVE (NEGATIVE) Ur Amphetamine Screen NEGATIVE (NEGATIVE) U Methamphetamines Scrn NEGATIVE (NEGATIVE) U Benzodiazepines Scrn NEGATIVE (NEGATIVE) Urine Cocaine Screen NEGATIVE (NEGATIVE) U Cannabinoids Screen NEGATIVE (NEGATIVE) Blood Type Antibody Screen Crossmatch IS Only 06/26/23 06/25/23 Range/Units 12:31 19:05 WBC (4.8-10.8) x10^3/uL RBC (4.70-6.10) 10^6/uL Hgb (14.0-18.0) g/dL Hct (42.0-52.0) % MCV (80.0-94.0) fL MCH (27.0-31.0) pg MCHC (32.0-36.0) g/dL RDW (12.0-15.0) % Plt Count (130-450) 10^3/uL MPV (7.4-11.4) fL Neut # (Auto) (1.5-6.6) 10^3/uL Lymph # (Auto) (1.5-3.5) 10^3/uL [place] # (Auto) (0.0-1.0) 10^3/uL Eos # (Auto) (0.0-0.7) 10^3/uL Baso # (Auto) (0.0-0.1) 10^3/uL Absolute Nucleated RBC x10^3/uL Nucleated RBC % /100WBC VBG pH 7.420 H (7.31-7.41) Ionized Calcium 1.09 L (1.15-1.33) mmol/L Sodium (135-145) mmol/L Potassium (3.5-4.5) mmol/L Chloride (101-111) mmol/L Carbon Dioxide (21-32) mmol/L Anion Gap (6-13) BUN (6-20) mg/dL Creatinine (0.6-1.3) mg/dL Estimated GFR (MDRD) (>89) Glucose (74-104) mg/dL Calcium (8.5-10.3) mg/dL Phosphorus (2.5-5.0) mg/dL Magnesium (1.7-2.3) mg/dL Total Bilirubin (0.2-1.0) mg/dL AST (10-42) IU/L ALT (10-60) IU/L Alkaline Phosphatase (42-121) IU/L Total Protein (6.4-8.9) g/dL Albumin (3.2-5.5) g/dL Globulin (2.1-4.2) g/dL Albumin/Globulin Ratio (1.0-2.2) Stl Occult Blood (IFOB) (NEGATIVE) Urine Opiates Screen (NEGATIVE) Ur Oxycodone Screen (NEGATIVE) Urine Methadone Screen (NEGATIVE) Ur Propoxyphene Screen (NEGATIVE) Ur Barbiturates Screen (NEGATIVE) Ur Tricyclics Screen (NEGATIVE) Ur Phencyclidine Scrn (NEGATIVE) Ur Amphetamine Screen (NEGATIVE) U Methamphetamines Scrn (NEGATIVE) U Benzodiazepines Scrn (NEGATIVE) Urine Cocaine Screen (NEGATIVE) U Cannabinoids Screen (NEGATIVE) Blood Type A POSITIVE Antibody Screen NEGATIVE Crossmatch IS Only See Detail - Current Medications Current Medications: Current Medications Generic Name Dose Route Start Last Admin Trade Name Freq PRN Reason Stop Dose Admin Buprenorphine HCl 0.5 tab 06/26/23 16:37 06/27/23 05:11 Buprenorphine/Naloxone 8-2 Mg Tab SL 0.5 tab Q4H PRN Administration CIWA >9 Hydroxyzine HCl 25 mg 06/26/23 17:34 06/27/23 01:40 Hydroxyzine 50 Mg/Ml Vial IM 25 mg Q6HR PRN Administration Agitation Dexmedetomidine/Sodium Chloride 100 mls @ 5.325 mls/hr 06/26/23 19:05 07:45 Precedex Premix IV 0 mcg/kg/hr .[id number] PRN 0 mls/hr Agitation Titration Protocol 0.2 MCG/KG/HR Magnesium Sulfate 2 gm in 50 mls @ 50 mls/hr 06/27/23 07:00 06/27/23 07:45 Magnesium Sulfate IV 06/27/23 07:59 50 mls/hr ONCE ONE Administration Protocol CALCIUM GLUC 1,000MG/50ML-NACL 1,000 mg in 50 mls @ 50 mls/hr 06/27/23 07:00 06/27/23 07:44 Calcium Gluc 1,000mg/50ml-Nacl IV 06/27/23 07:59 50 mls/hr ONCE ONE Administration Protocol Nicotine 1 patch 06/26/23 00:00 06/26/23 11:00 Nicotine 21 Mg Patch TOP 1 patch DAILY LARISSA Administration Ondansetron HCl 4 mg 06/25/23 21:04 06/25/23 21:32 Ondansetron 4 Mg/2 Ml Vial IVP 4 mg Q6HR PRN Administration Nausea / Vomiting Pantoprazole Sodium 40 mg 06/26/23 16:00 06/27/23 07:36 Pantoprazole 40 Mg Tablet PO Not Given QDAC LARISSA Pantoprazole Sodium 40 mg 06/27/23 07:00 06/27/23 06:13 Pantoprazole 40 Mg Vial IVP 40 mg QDAC LARISSA Administration Pramipexole Dihydrochloride 0.25 mg 06/26/23 22:34 06/27/23 06:05 Pramipexole 0.25 Mg Tablet PO 0.25 mg DAILY PRN Administration PER PHYSICIAN ORDER Sodium Chloride 10 ml 06/26/23 01:00 06/26/23 22:57 Sodium Chloride Flush 0.9% 10 Ml Syringe IVP 10 ml 0100,0900,1700 LARISSA Administration Sodium Chloride 10 ml 06/25/23 21:04 06/27/23 06:13 Sodium Chloride Flush 0.9% 10 Ml Syringe IVP 10 ml PRN PRN Administration NEEDED PER PROVIDER ORDERS - Physical Exam General Appearance: positive: No acute distress, Other (resting) Neck: positive: Trachea midline Respiratory: positive: No respiratory distress Cardiovascular: positive: Regular rate & rhythm Abdomen: positive: Non-tender. negative: Guarding, Rebound Extremities: positive: Nml appearance Neurologic/Psychiatric: positive: Other (anxious/restless) Impression/Plan - Problem List Problem List: This is a 48-year-old male with: 1. Gastrointestinal bleeding with severe anemia small duodenal ulcer on EGD, no active bleeding - if patient rebleeds, consider bowel prep and colonoscopy (this process will be very difficult given patient's active withdrawal) Patient reported one week of melena and fatigue prior to admission. I suspect suspect the patient's had symptoms for far longer than this given how well compensated he is with his very low hemoglobin. His risk factors for upper GI bleeding including tobacco use and NSAID use. He denies any alcohol use. He denies any history of upper gastrointestinal bleeding. -The patient has been transfused 3 units of blood. follow hgb today to assess stability -Agree with PPI. Aviod NSAIDs, blood thinning medications. -Ok to give clears this AM. Once hgb stable for 12 hours, ok to adat to regular. 2. Opiate use disorder, in active withdrawal As per primary team working to manage withdrawal symptoms 3. Bilateral lower extremity edema, low protein -As per primary team Thank you for consulting me in the care of this patient. I will continue to follow him closely.
[2023-06-27] MEDS: NICOTINE 21 MG PATCH TOP SCH (09:52)
[2023-06-27] MEDS: cloNIDine 0.1 MG TABLET PO SCH (09:53)
[2023-06-27] MEDS: SODIUM CHLORIDE FLUSH 0.9% 10 ML SYRINGE IVP SCH ×2 (09:53→17:49)
[2023-06-27 10:33] LABS: CALCIUM, IONIZED 1.15 mmol/L (1.15-1.33); VBG PH 7.427 (7.31-7.41)
[2023-06-27] MEDS: diazePAM INJ 5 MG/ML SYRINGE IVP PRN ×2 (11:19→19:44)
--- NOTE | 2023-06-27 17:01 | PROVIDER PROGRESS NOTE ---
Subjective - Prog Note Date Prog Note Date: 06/27/23 Prog Note Time: 16:59 - Subjective Subjective: Yesterday evening the patient was pacing in his room, up and out of bed, raising his voice and frustration. He felt miserable with nausea, diffuse body aches, legs hurting. I gave him Precedex on top of the Suboxone and it did not help much. I then added Valium 5 mg every 8 hours. I warned the nurses that we needed to worry about respiratory depression in a patient who is on multiple medications that could make him stop breathing. I had an end-tidal CO2 monitor on him. This morning I found him to be snoring. It took a few hours but he finally was able to get some sleep. He was having periods of bradycardia into the 30s. Snoring with minimal hypopnea. I stopped the Precedex and within an hour his pulse was in the 60s. For the rest of today he is tired but lucid. Feels much better than he did yesterday. His swollen legs from admission have gotten much smaller. He wants to eat so he is gone from clear liquids to mechanical soft diet. After those 2 meals he now is asking me for a regular diet. He is asking for enough medication to taper off Suboxone over the next few weeks. Current Medications - Current Medications Current Medications: Active Medications Al Hydroxide/Mg Hydroxide (Mag Hydrox/Al Hydrox/Simeth 30 Ml Udc) 30 ml PO Q4HR PRN PRN Reason: INDIGESTION Buprenorphine HCl (Buprenorphine/Naloxone 8-2 Mg Tab) 0.5 tab SL Q4H PRN PRN Reason: CIWA >9 Last Admin: 06/27/23 13:30 Dose: 0.5 tab Clonidine HCl (Clonidine 0.1 Mg Tablet) 0.2 mg PO DAILY LARISSA Last Admin: 06/27/23 09:53 Dose: Not Given Diazepam (Diazepam Inj 5 Mg/Ml Syringe) 5 mg IVP Q8H PRN PRN Reason: Agitation Last Admin: 06/27/23 11:19 Dose: 5 mg Hydroxyzine HCl (Hydroxyzine 50 Mg/Ml Vial) 25 mg IM Q6HR PRN PRN Reason: Agitation Last Admin: 06/27/23 01:40 Dose: 25 mg Lidocaine (Lidocaine Patch 5%) 1 patch TOP DAILY PRN PRN Reason: Moderate Pain (Level 4-6) Nicotine (Nicotine 21 Mg Patch) 1 patch TOP DAILY [facility] Last Admin: 06/27/23 09:52 Dose: 1 patch Ondansetron HCl (Ondansetron 4 Mg/2 Ml Vial) 4 mg IVP Q6HR PRN PRN Reason: Nausea / Vomiting Last Admin: 06/25/23 21:32 Dose: 4 mg Pantoprazole Sodium (Pantoprazole 40 Mg Vial) 40 mg IVP QDAC [facility] Last Admin: 06/27/23 06:13 Dose: 40 mg Pramipexole Dihydrochloride (Pramipexole 0.25 Mg Tablet) 0.25 mg PO DAILY PRN PRN Reason: PER PHYSICIAN ORDER Last Admin: 06/27/23 16:30 Dose: 0.25 mg Sodium Chloride (Sodium Chloride Flush 0.9% 10 Ml Syringe) 10 ml IVP 0100,0900,1700 [facility] Last Admin: 06/27/23 09:53 Dose: 10 ml Sodium Chloride (Sodium Chloride Flush 0.9% 10 Ml Syringe) 10 ml IVP PRN PRN PRN Reason: NEEDED PER PROVIDER ORDERS Last Admin: 06/27/23 06:13 Dose: 10 ml Buprenorphine HCl/Naloxone HCl [Buprenorphine-Nalox 8-2Mg Film] 1 tab PO DAILY 06/26/23 Dicyclomine HCl 10 mg PO QID 06/26/23 Gabapentin [Neurontin] 300 mg PO QID 06/26/23 Naloxone HCl Nasal [Narcan Nasal] 2 spray GLADYS PRN PRN 06/26/23 Ondansetron Odt [Zofran Odt] 4 mg TL BID PRN 06/26/23 Promethazine [Phenergan] 12.5 mg PO DAILY 06/26/23 cloNIDine [Catapres] 0.1 mg PO Q4H 06/26/23 hydrOXYzine pamoate [Hydroxyzine Pamoate] 50 mg PO TID 06/26/23 methocarbamoL [Methocarbamol] 750 mg PO 5XD 06/26/23 traZODone [Desyrel] 50 mg PO DAILY 06/26/23 Objective - Vital Signs/Intake & Output Reviewed Vital Signs: Yes Vital Signs: Vital Signs Pulse Resp BP 06/27/23 15:00 71 16 127/63 06/27/23 14:00 68 22 149/95 H 06/27/23 13:00 59 L 15 116/85 H Intake & Output: Intake & Output 06/24/23 06/25/23 06/26/23 06/27/23 23:59 23:59 23:59 23:59 Intake Total 23.667 2973.530 2466.949 Output Total 200 3220 3875 Balance -176.333 -246.470 -1408.051 - Objective General Appearance: positive: Alert, Other (Tall, disheveled white male who looks fatigued. Yesterday he had grayish's and sallow appearance. Skin not ne drew as great today with a little bit more pinkness in it. Able to sit up in bed on his own, walk around the room, go to the bathroom on his own) Eyes Bilateral: positive: PERRL, EOMI ENT: positive: No signs of dehydration Neck: positive: No JVD. negative: Stiff neck Respiratory: positive: No respiratory distress. negative: Wheezes, Rales, Rhonchi Cardiovascular: positive: Regular rate & rhythm. negative: Tachycardia Abdomen: positive: Non-tender, No organomegaly, Nml bowel sounds, No distention Skin: positive: Warm, Dry, Pallor. negative: Diaphoresis Extremities: positive: Full ROM, Other (Both of his legs hurt and ache. Not nearly as much as yesterday. Especially from the knees on down.) Neurologic/Psychiatric: positive: Oriented x3, CN's nml (2-12), Motor nml (No tremors.), Other (No diaphoresis, yawning, lacrimation, agitation) - Lab Results Fish Bones: 06/27/23 04:40 06/27/23 04:40 Other Labs: Lab Results x24hrs 06/27/23 06/27/23 06/27/23 Range/Units 10:00 10:00 04:40 WBC 10.2 (4.8-10.8) x10^3/uL RBC 2.85 L (4.70-6.10) 10^6/uL Hgb 7.5 L (14.0-18.0) g/dL Hct 24.6 L (42.0-52.0) % MCV 86.3 (80.0-94.0) fL MCH 26.3 L (27.0-31.0) pg MCHC 30.5 L (32.0-36.0) g/dL RDW 16.2 H (12.0-15.0) % Plt Count 475 H (130-450) 10^3/uL MPV 10.0 (7.4-11.4) fL Neut # (Auto) 7.0 H (1.5-6.6) 10^3/uL Lymph # (Auto) 2.3 (1.5-3.5) 10^3/uL [place] # (Auto) 0.8 (0.0-1.0) 10^3/uL Eos # (Auto) 0.1 (0.0-0.7) 10^3/uL Baso # (Auto) 0.0 (0.0-0.1) 10^3/uL Absolute Nucleated RBC 0.00 x10^3/uL Nucleated RBC % 0.0 /100WBC VBG pH 7.427 H (7.31-7.41) Ionized Calcium 1.15 (1.15-1.33) mmol/L Sodium (135-145) mmol/L Potassium (3.5-4.5) mmol/L Chloride (101-111) mmol/L Carbon Dioxide (21-32) mmol/L Anion Gap (6-13) BUN (6-20) mg/dL Creatinine (0.6-1.3) mg/dL Estimated GFR (MDRD) (>89) Glucose (74-104) mg/dL Calcium (8.5-10.3) mg/dL Phosphorus (2.5-5.0) mg/dL Magnesium 2.0 (1.7-2.3) mg/dL Total Bilirubin (0.2-1.0) mg/dL AST (10-42) IU/L ALT (10-60) IU/L Alkaline Phosphatase (42-121) IU/L Total Protein (6.4-8.9) g/dL Albumin (3.2-5.5) g/dL Globulin (2.1-4.2) g/dL Albumin/Globulin Ratio (1.0-2.2) Stl Occult Blood (IFOB) (NEGATIVE) Blood Type Antibody Screen Crossmatch IS Only 10/12/23 10/12/23 10/11/23 Range/Units 04:40 04:40 17:00 WBC (4.8-10.8) x10^3/uL RBC (4.70-6.10) 10^6/uL Hgb (14.0-18.0) g/dL Hct (42.0-52.0) % MCV (80.0-94.0) fL MCH (27.0-31.0) pg MCHC (32.0-36.0) g/dL RDW (12.0-15.0) % Plt Count (130-450) 10^3/uL MPV (7.4-11.4) fL Neut # (Auto) (1.5-6.6) 10^3/uL Lymph # (Auto) (1.5-3.5) 10^3/uL [place] # (Auto) (0.0-1.0) 10^3/uL Eos # (Auto) (0.0-0.7) 10^3/uL Baso # (Auto) (0.0-0.1) 10^3/uL Absolute Nucleated RBC x10^3/uL Nucleated RBC % /100WBC VBG pH 7.391 (7.31-7.41) Ionized Calcium 1.10 L (1.15-1.33) mmol/L Sodium 138 (135-145) mmol/L Potassium 4.1 (3.5-4.5) mmol/L Chloride 109 (101-111) mmol/L Carbon Dioxide 25 (21-32) mmol/L Anion Gap 4.0 L (6-13) BUN 16 (6-20) mg/dL Creatinine 1.2 (0.6-1.3) mg/dL Estimated GFR (MDRD) 64 L (>89) Glucose 125 H (74-104) mg/dL Calcium 7.9 L (8.5-10.3) mg/dL Phosphorus 3.6 (2.5-5.0) mg/dL Magnesium 1.6 L (1.7-2.3) mg/dL Total Bilirubin 0.3 (0.2-1.0) mg/dL AST 19 (10-42) IU/L ALT 9 L (10-60) IU/L Alkaline Phosphatase 74 (42-121) IU/L Total Protein 4.7 L (6.4-8.9) g/dL Albumin 1.9 L (3.2-5.5) g/dL Globulin 2.8 (2.1-4.2) g/dL Albumin/Globulin Ratio 0.7 L (1.0-2.2) Stl Occult Blood (IFOB) POSITIVE A (NEGATIVE) Blood Type Antibody Screen Crossmatch IS Only 06/25/23 Range/Units 19:05 WBC (4.8-10.8) x10^3/uL RBC (4.70-6.10) 10^6/uL Hgb (14.0-18.0) g/dL Hct (42.0-52.0) % MCV (80.0-94.0) fL MCH (27.0-31.0) pg MCHC (32.0-36.0) g/dL RDW (12.0-15.0) % Plt Count (130-450) 10^3/uL MPV (7.4-11.4) fL Neut # (Auto) (1.5-6.6) 10^3/uL Lymph # (Auto) (1.5-3.5) 10^3/uL [place]w # (Auto) (0.0-1.0) 10^3/uL Eos # (Auto) (0.0-0.7) 10^3/uL Baso # (Auto) (0.0-0.1) 10^3/uL Absolute Nucleated RBC x10^3/uL Nucleated RBC % /100WBC VBG pH (7.31-7.41) Ionized Calcium (1.15-1.33) mmol/L Sodium (135-145) mmol/L Potassium (3.5-4.5) mmol/L Chloride (101-111) mmol/L Carbon Dioxide (21-32) mmol/L Anion Gap (6-13) BUN (6-20) mg/dL Creatinine (0.6-1.3) mg/dL Estimated GFR (MDRD) (>89) Glucose (74-104) mg/dL Calcium (8.5-10.3) mg/dL Phosphorus (2.5-5.0) mg/dL Magnesium (1.7-2.3) mg/dL Total Bilirubin (0.2-1.0) mg/dL AST (10-42) IU/L ALT (10-60) IU/L Alkaline Phosphatase (42-121) IU/L Total Protein (6.4-8.9) g/dL Albumin (3.2-5.5) g/dL Globulin (2.1-4.2) g/dL Albumin/Globulin Ratio (1.0-2.2) Stl Occult Blood (IFOB) (NEGATIVE) Blood Type A POSITIVE Antibody Screen NEGATIVE Crossmatch IS Only See Detail Assessment/Plan - Problem List (1) Heroin withdrawal Impression: Yesterday afternoon he started to go through withdrawal manifested as abdominal cramping, diaphoresis, tachycardia, anxiety, severe irritability, and restlessness. I started him on Suboxone and, in spite of that, he continued to escalate with his irritability and restlessness. He was yelling and cursing as he paced in his room. I then added Precedex because I wanted to avoid benzodiazepine use. That did not work, so I then added Valium 5 mg every 8 hours as needed. He did well with those combination. And nursing did watch the end-tidal CO2. He did have some respiratory depression this morning with subsequent bradycardia. Once I stopped the Precedex, that went away. For the rest of the day he has been able to sleep. He still feels irritable but not nearly as severe as he did yesterday. His appetite is improving advancing his diet. Currently getting Suboxone 8 mg, half a tablet every 4 hours. Between 4:45 yesterday afternoon and 1:30 this afternoon, he has received a total of 12 mg. He has requested refills of Suboxone once he leaves here. Plan: I explained to him that I will not be able to provide him with an extensive amount of Suboxone. He needs to do that through a pain clinic in the outpatient setting. He said he did not know where to go and I asked him where was the paperwork social work and given him. I reviewed the paperwork, and there is a list of facilities for him to register with. There are at least 3 on the [place] for him to use. Or he can go to [facility]. And there is one in [place]. I will change his Suboxone to a 12 mg dose. He can have 1-1/2 pills a day of the 8 mg SL. We will try that as of today. Avoid the valium since I am hoping to dc in the morning. I plan on giving him only a few days worth when he leaves. I have encouraged him to go over this list today, with his . Start calling the spaces so that he can get into see them because he will run out of Suboxone before he can get an appointment with them. I am encouraging him not to use the Valium but only use it in extreme measures like last night. (2) GI bleed Impression: Right now his source of bleeding appears to be the duodenal ulcer but there was no active bleeding seen on EGD 06/26. Biopsies will take 2 to 3 days to get back on H. pylori status. Total of 5 units of been transfused. Hemoglobin started at 5.6 and is 7.5 today. Plan: Protonix 40 mg p.o. twice daily No nonsteroidal therapy, ever Continue to monitor hemoglobin and hematocrit And transfuse if below 7. Review biopsies when available Consider colonoscopy if continues to have dark stools and or anemia continues Qualifiers: GI bleed type/associated pathology: duodenal ulcer Qualified Code(s): K26.4 - Chronic or unspecified duodenal ulcer with hemorrhage (3) Acute on chronic blood loss anemia Impression: At this time the presumption is that he has an acute blood loss anemia from his gastric ulcer. He also has a history of heroin abuse with a presumed history of chronic blood loss and iron deficiency. However I am not able to find any work-up in the past medical records. That leads me to broaden my differential to possible hemolytic anemia but his bilirubin is not elevated. Lower GI bleed but he does not have any left lower quadrant pain from diverticulosis. Anemia of chronic disease would be usually present with chronic renal failure or chronic inflammatory status, and he does not have that. Plan: Continue following his hemoglobin and transfuse to hemoglobin above 7. After 5 units, I am surprised his hemoglobin is only 7. I will check reticulocyte count, LDH, and vitamin B12. In reviewing the notes from his visit with HEMALATHA Brooks, hemoglobin was 12.7 with her. Her visit was strictly about the hepatitis C and getting a colon cancer screening on him with colonoscopy. I have explained to the patient that he will need outpatient follow-up for the colonoscopy. My anticipation is discharged tomorrow if his hemoglobin stays above 7 and stable. He will need to be discharged on iron and vitamin C. He will need to follow-up with a primary care provider. (4) Anasarca Impression: He was seen by [facility], HEMALATHA Bhatia on February 16, 2022. Social history showed him to have a history of IV drug abuse and tattoos as well as alcohol abuse but he was now sober. Hemoglobin at that time was 12.0. His ultrasound in January 2022 had no acute ultrasound abnormality, fatty liver, cholelithiasis and a benign gallbladder polyp. No evidence of acute cholecystitis. Simple left renal cyst. A viral load was not detected on serum check. His hepatitis C antibody was positive. It was explained to him that he cleared the virus on his own. He was still worried about it and asked for a repeat blood test in a month. No treatment was offered at that time. As such, he may have fatty liver causing cirrhosis and ascites or he could just be fluid overload from the last few days. Abdominal ultrasound was done yesterday afternoon and he has no findings of cirrhosis on imaging. No ascites. He has cholelithiasis and a small polyp. Repeat ultrasound recommended in 12 months. Echocardiogram here has overall left ventricular systolic function at an ejection fraction of 60 to 65%. Normal diastology. Right ventricle normal in size and function. Moderate increase in left atrial volume index of 43 mils per meter squared. Mild to moderate right atrial enlargement. He had normal- appearing valves with only trace regurgitation. My interpretation of all of this is to assume that he had fluid overload from the multiple packed red cells he was given. Multiple IV fluids. His edema seems to be going away on its own. Even he states that his legs are much less swollen. No further work-up at this time.
[2023-06-27] MEDS: BUPRENORPHINE/NALOXONE 8-2 MG TAB SL SCH (17:48)
[2023-06-28] MEDS: BUPRENORPHINE/NALOXONE 8-2 MG TAB SL PRN ×2 (02:02→06:44)
[2023-06-28] MEDS: SODIUM CHLORIDE FLUSH 0.9% 10 ML SYRINGE IVP SCH ×2 (03:52→09:29)
[2023-06-28] MEDS: diazePAM INJ 5 MG/ML SYRINGE IVP PRN (04:14)
[2023-06-28 04:57] LABS: BASOPHILS % (AUTO) 0.5 %; EOSINOPHILS # (AUTO) 0.2 10^3/uL (0.0-0.7); EOSINOPHILS % (AUTO) 2.5 %; HCT - HEMATOCRIT 24.3 % (42.0-52.0); HGB - HEMOGLOBIN 7.5 g/dL (14.0-18.0); LYMPHOCYTES # (AUTO) 2.3 10^3/uL (1.5-3.5); LYMPHOCYTES % (AUTO) 29.1 %; MEAN CORPUSCULAR HEMOGLOBIN 26.5 pg (27.0-31.0); MEAN CORPUSCULAR HGB CONC 30.9 g/dL (32.0-36.0); MEAN CORPUSCULAR VOLUME 85.9 fL (80.0-94.0); MEAN PLATELET VOLUME 10.1 fL (7.4-11.4); MONOCYTES # (AUTO) 0.7 10^3/uL (0.0-1.0); MONOCYTES % (AUTO) 8.9 %; NEUTROPHILS # (AUTO) 4.7 10^3/uL (1.5-6.6); NEUTROPHILS % (AUTO) 58.6 %; PLT - PLATELET COUNT 444 10^3/uL (130-450); RED BLOOD COUNT 2.83 10^6/uL (4.70-6.10); RED CELL DISTRIBUTION WIDTH 16.8 % (12.0-15.0)
[2023-06-28 05:11] LABS: CALCIUM, IONIZED 1.08 mmol/L (1.15-1.33); VBG PH 7.427 (7.31-7.41)
[2023-06-28 05:12] LABS: MAGNESIUM 1.8 mg/dL (1.7-2.3); PHOSPHORUS 3.9 mg/dL (2.5-5.0)
[2023-06-28 05:30] LABS: ALBUMIN 1.9 g/dL (3.2-5.5); ALBUMIN/GLOBULIN RATIO 0.7 (1.0-2.2); BILIRUBIN,TOTAL 0.2 mg/dL (0.2-1.0); CALCIUM 7.7 mg/dL (8.5-10.3); CREATININE 1.3 mg/dL (0.6-1.3); POTASSIUM 3.7 mmol/L (3.5-4.5); TOTAL PROTEIN 4.5 g/dL (6.4-8.9)
[2023-06-28] MEDS: PANTOPRAZOLE 40 MG VIAL IVP SCH (06:44)
[2023-06-28] MEDS ORDERED: MAGNESIUM OXIDE 400 MG TABLET PO ONE (07:12)
[2023-06-28] MEDS ORDERED: POTASSIUM CHLORIDE 20 MEQ TABLET PO ONE (07:12)
[2023-06-28] MEDS ORDERED: CALCIUM CARBONATE CHEW 500 MG TABLET PO SCH (08:00)
[2023-06-28 08:21] VITALS: BP 147/91; O2SAT 96
[2023-06-28] MEDS: PRAMIPEXOLE 0.25 MG TABLET PO PRN (09:27)
[2023-06-28] MEDS: BUPRENORPHINE/NALOXONE 8-2 MG TAB SL SCH (09:27)
[2023-06-28] MEDS: NICOTINE 21 MG PATCH TOP SCH (09:28)
[2023-06-28] MEDS: cloNIDine 0.1 MG TABLET PO SCH (09:28)
[2023-06-28 11:20] LABS: ABSOLUTE RETICS # AUTO 0.099 10^6/uL (0.020-0.110); RED BLOOD COUNT 2.86 10^6/uL (4.70-6.10); RETICULOCYTE COUNT % (AUTO) 3.45 % (0.5-2.3)
--- NOTE | 2023-06-28 11:58 | Discharge Plan ---
Discharge Plan Problem Reviewed?: Yes Disposition: Home, Self Care Condition: Stable Prescriptions: Buprenorphine HCl/Naloxone HCl [Buprenorphine-Nalox 8-2Mg Film] 1.5 tab PO DAILY #11 film Diet: Regular Activity Restrictions: Activity as Tolerated Shower Restrictions: No Driving Restrictions: No Health Concerns: You came to our walk-in clinic because you were weak, dizzy, lightheaded. You had just discharged yourself from a rehab facility for heroin withdrawal. You just felt like they were not taking care of your withdrawal so you came home and were using heroin to take care of the withdrawal. It only been a day or 2 and you just felt so miserable you came to the walk-in clinic. In the walk-in clinic you were identified as having severe anemia. You then also shared that you been having dark stools for a couple of weeks. From the walk-in clinic you were sent to our emergency room and we found you to have severe iron deficiency anemia from a bleeding stomach ulcer, as well as severe withdrawal. Treatment consisted of transfusing you. A normal amount of blood in a man is measured in grams of hemoglobin. A normal amount is 12 g. You were 4.7 with us. We transfused 5 units and you are now 7.5 g. So you still have a bit to go before you were normal. We do not transfuse to normal. We only transfuse to above 7 g. Your heroin withdrawal was very severe. You needed tranquilizers, and even needed a medication that we use to put people to sleep when they are under anesthesia. Even that was not helping you very much. You ended up needing medication called Suboxone, Precedex, and Valium to help you through withdrawal. You are only on Suboxone right now. Plan of Treatment: 1. Please reestablish yourself with a primary care provider at [facility] in [place]. You shared with me that Dr. Barton has left for [place] and you have been assigned to a new provider. Make sure you see that provider in follow-up. They may need to make the referral for you to be seen for a follow-up colonoscopy with a general surgeon. Whoever that provider is, they also need to follow-up on your iron deficiency anemia and check your blood work in the next 2 to 3 weeks to make sure that your hemoglobin is staying up. Their office number is [phone]. 2. The general surgeon who did your upper endoscopy, Dr. Anjelica Oneal, belongs to a group called [facility]. They are on [address] [place] [address]. Their office number is [phone]. Please call that number and schedule yourself for a follow-up colonoscopy. You can make an appointment with any provider in that office. 3. Treatment for your heroin abuse is now going to be maintenance Suboxone. You are on quite a high dose because of the severity of your withdrawal. But please establish yourself with a Suboxone clinic. They may taper you down on your dosing. I am only sending you home with 7 days worth of medication. You state that you have an appointment on July 04. 4. For your ulcer, please take Protonix 40 mg, tablets, twice a day for the next 30 days. For the rest of your life you cannot ever take aspirin, Aleve, Motrin, Mobic, or any anti-inflammatory medicine for pain or arthritis. The only medicine you can take [id number] is Tylenol. When you see the surgeon for your colonoscopy asked them if you need to do a follow-up upper endoscopy to make sure your ulcer has healed. 5. For the anemia that was caused by your gastric ulcer bleeding, I am prescribing iron tablets once a day. Take 1 iron tablet with 1 vitamin C tablet. Do this for the next 2 months. Care Goals: To stay off heroin for the rest of your life. That is your major goal. Assessment: Patient is alert, oriented to person place and situation. Blood pressure, pulse, exam normal No Smoking: If you smoke, Please STOP! Call for help. Follow-up with: Goldie Oneal MD [Provider Admit Priv/Credential] -
--- NOTE | 2023-06-28 12:17 | DISCHARGE SUMMARY ---
"Discharge Summary Admit Date: 06/25/23 Discharge Date: 06/28/23 Discharging Provider: Ayala Zimmer MD Primary Care Provider: [facility] [place] Code Status: Attempt Resuscitation Condition at Discharge: Stable Discharge Disposition: 01 Home, Self Care - DIAGNOSES Discharge Diagnoses with Status of Each Condition: 1. Acute on chronic blood loss anemia 2. Upper GI bleed 3. Peptic ulcer disease 4. Heroin withdrawal 5. Anasarca - HPI History of Present Illness: 48 Y old male with PMH heroin abuse, Hep C was sent to ER from walk in clinic due to anemia. Pt c/o weakness and dizziness and dark coloured stool. He went to walk in clinic where labs showed Hemoglobin 5. C/O SOB. Denies chest pain, fever, TY, nausea, vomiting, symptoms On presentaion, Afebrile. BP accelerated Labs showed WBC 12, Hb 5.6 Type and screen done In ER , pt was given protonix iv As per ER physician (Dr Lazaro), he consulted with surgeon global consumer sector vice president and plan is for EGD in am Pt is admitted due to GI bleeding, melena, acute blodd loss anemia - Past Medical History Cardiovascular: reports: None Endocrine/Autoimmune: reports: None MRSA Hx?: Yes - Past Surgical History Ortho: reports: Spine surgery - CONSULTS | PROCEDURES Consultations: General surgery: Dr. Rachel Oneal Procedures: 1. Transfusion of 5 units of packed red cells 2. Chest x-ray without acute cardiopulmonary process 3. Abdominal ultrasound with normal contour, no nodularity. Suspected cholelithiasis versus small polyp in the gallbladder. Pancreas not well seen. No findings of cirrhosis present. 4. EGD with 1 nonbleeding superficial duodenal ulcer. No stigmata of bleeding found in the duodenal bulb. Gastric fundus and cardia were within normal limits. Normal esophagus. Pathology had minimal chronic gastritis. No Helicobacter on routine staining. No metaplasia, dysplasia or carcinoma identified. 5. Echocardiogram done for anasarca on physical exam had normal LV size and systolic function at LVEF 65%. Normal RV size and systolic function. No significant valvular pathology - HOSPITAL COURSE Hospital Course: The patient was placed in the ICU due to his tachycardia, and severe anemia. EG D showed him to have a nonbleeding ulcer in the duodenum. General surgery feels that that is the source of his bleeding albeit not currently bleeding at the time of the exam. He was transfused 5 units of blood and hemoglobin remained stable after that transfusion. However he is still significantly anemic and has a hemoglobin of 7.5. He will need at least 60 days of iron and vitamin C on a daily basis. I would recommend that his primary care provider do a CBC this month and next month to make sure he is responding. EGD was confirmatory of the duodenal ulcer but esophagus was normal. Rest of gastric and fundus area was normal. He will need to be on proton pump inhibitors twice a day for the next 30 days. I have advised the patient not to ever use nonsteroidal therapy for the rest of his life. The only [id number] medication he can use is Tylenol. General surgery is requesti ng that he have a follow-up colonoscopy. Apparently he had some type of bowel illness when he was 2 years old and is never followed up. He is also of the age that it is time for him to get a colonoscopy. At that time general surgery will determine if he needs to have a repeat EGD. I have given him the name of the primary care office in [place], as well as the name of the surgical office here in [place] associated with the hospital. He needs to call and make appointments with that. The biggest issue he had, once his GI bleed was stabilized, was heroin withdrawal. He was started on Suboxone. Initially 4 mg. Then 8 mg. Finally 12 mg of Suboxone was able to control his withdrawal symptoms. At 1 point his symptoms were so severe he was placed on Precedex for a few hours. The drug that seem to finally control his severe discomfort was valium. Because of the respiratory suppression noted with all of his medications, i ordered end-tidal CO2 monitoring throughout his treatment when on these medications. He is now discharged on Suboxone. I have only given him enough for 7 days and he has an appointment with a treatment clinic on July 04. When he was admitted, he had an entire list of medications from the rehab facility he had left. Those were on his active medication list and I have discontinued all of them. At discharge he is only to be on Protonix, Suboxone, iron, and vitamin C. Discharge exam had a temperature 36.6, heart rate 76, blood pressure 147/91, re spirations 18, 96% on room air. He is 6 feet, 3 inches tall, 102.5 kg. He is a tall, disheveled white male who looks fatigued but looks his stated age. He is very, very pale. When under stress his skin tends to have a grayish discoloration. Shotty neck adenopathy. Lungs are clear to auscultation and percussion. He has a regular rate and rhythm. No murmur. The abdomen is soft, nontender, normal bowel sounds. Extremities without edema today. He had quite a bit of fluid overload in association with the fluid resuscitation for his GI bleed. Almost all of that has now gone away. He is not diaphoretic. 2 nights ago he was very agitated. That is resolved. Greater than 30 minutes was coordinating discharge This document was made in part using voice recognition software. While efforts are made to proofread this document, sound alike and grammatical errors may occur. - ALLERGIES Allergies/Adverse Reactions: Allergies Allergy/AdvReac Type Severity Reaction Status Date / Time acetaminophen AdvReac upset Verified 06/25/23 19:19 stomach - MEDICATIONS Home Medications: Ambulatory Orders Medication Instructions Recorded Confirmed Naloxone HCl Nasal [Narcan Nasal] 2 spray GLADYS PRN PRN 06/26/23 06/26/23 Ascorbic Acid/Ascorbate Sodium 282 mg PO DAILY #180 tab 06/28/23 [Eql Vitamin C Gummies] Buprenorphine HCl/Naloxone HCl 1.5 tab PO DAILY #11 film 06/28/23 [Buprenorphine-Nalox 8-2Mg Film] Ferrous Gluconate [Fergon] 324 mg PO DAILY #60 tablet 06/28/23 Pantoprazole [Protonix] 40 mg PO BID #60 tablet 06/28/23 - LABS Result Diagrams: 06/28/23 04:17 06/28/23 04:17"
== END 2023-06-28 13:16 | disposition home or self-care (01) | DRG 378 ==
LOC: ED 18:51 → ICU 21:04
PROVIDERS: ADMIT Internal Medicine; ATTEND Specialist
PROC: 02HV33Z Insertion of Infusion Device into Superior Vena Cava, Percutaneous Approach (ICD-10-PCS; 2023-06-26)
PROC: 30233N1 Transfusion of Nonautologous Red Blood Cells into Peripheral Vein, Percutaneous Approach (ICD-10-PCS; 2023-06-26)
PROC: 0DB68ZX Excision of Stomach, Via Natural or Artificial Opening Endoscopic, Diagnostic (ICD-10-PCS; principal; 2023-06-26 14:00)
DX: K26.4 Chronic or unspecified duodenal ulcer with hemorrhage (principal); D62 Acute posthemorrhagic anemia; F11.13 Opioid abuse with withdrawal; F17.210 Nicotine dependence, cigarettes, uncomplicated; R00.0 Tachycardia, unspecified; R60.1 Generalized edema; R60.0 Localized edema; R00.1 Bradycardia, unspecified; T50.995A Adverse effect of other drugs, medicaments and biological substances, initial encounter; Y92.230 Patient room in hospital as the place of occurrence of the external cause; G93.89 Other specified disorders of brain
CPT/HCPCS: 36415; 76705; 80048; 80053; 80306; 81001; 82274; 82330; 82607; 83615; 83690; 83735; 84100; 85025; 85027; 85045; 85610; 85730; 86850; 86900; 86901; 86920; 87150; 93005; 93306; 99285; A9270; P9016; 81003; 87086

== ENCOUNTER 2023-07-19 11:50 | Outpatient (CLI) | payer MEDICAID ==
--- NOTE | 2023-07-19 17:59 | CT Report ---
PROCEDURE: Low Dose Lung Cancer Screen INDICATIONS: LUNG CA SCREENING TECHNIQUE: A CT scan of the chest was performed. Intravenous contrast media was not administered. Images were re corded and evaluated at appropriate window settings. Reformats: axial MIP of the chest, coronal and s agittal. For radiation dose reduction, the following was used: automated exposure control, adjustment of mA and/or kV according to patient size. COMPARISON: None. FINDINGS: Image quality: Excellent. Prior cancer history: None Lungs and pleura: No pleural effusions. No pneumothorax. No suspicious pulmonary nodules which requi re follow up. Mediastinum: Heart size is normal. No pericardial effusion. Mild coronary artery calcifications. No l arge vessel abnormality. No mediastinal adenopathy by size criteria. Chest wall and lower neck: Thyroid is unremarkable. No axillary or supraclavicular adenopathy by size . Bones: No aggressive osseous abnormality. Upper Abdomen: Unremarkable. IMPRESSION: No pulmonary nodules. No acute process. Lung RAD: 1 - Negative. Recommendation: Continue annual screening in 12 Months with LDCT Non-Lung Significant Findings: None. Reviewed by: Jorgito Patel MD on 07/19/2023 5:58 PM PDT Approved by: Jorgito Patel MD on 07/19/2023 5:58 PM PDT Station ID: [id number]
== END 2023-07-19 11:51 | disposition home or self-care (01) ==
LOC: DI 11:50
PROVIDERS: ATTEND Nurse Practitioner Acute Care
DX: Z12.2 Encounter for screening for malignant neoplasm of respiratory organs (principal)

== ENCOUNTER 2023-11-08 10:34 | Outpatient (CLI) | payer MEDICAID ==
[2023-11-08 15:08] LABS: BASOPHILS # (AUTO) 0.1 10^3/uL (0.0-0.1); BASOPHILS % (AUTO) 0.8 %; EOSINOPHILS # (AUTO) 0.2 10^3/uL (0.0-0.7); EOSINOPHILS % (AUTO) 3.4 %; HCT - HEMATOCRIT 47.1 % (42.0-52.0); HGB - HEMOGLOBIN 15.2 g/dL (14.0-18.0); LYMPHOCYTES # (AUTO) 2.2 10^3/uL (1.5-3.5); LYMPHOCYTES % (AUTO) 35.5 %; MEAN CORPUSCULAR HEMOGLOBIN 28.3 pg (27.0-31.0); MEAN CORPUSCULAR HGB CONC 32.3 g/dL (32.0-36.0); MEAN CORPUSCULAR VOLUME 87.7 fL (80.0-94.0); MEAN PLATELET VOLUME 12.2 fL (7.4-11.4); MONOCYTES # (AUTO) 0.7 10^3/uL (0.0-1.0); MONOCYTES % (AUTO) 10.7 %; NEUTROPHILS % (AUTO) 49.4 %; PLT - PLATELET COUNT 165 10^3/uL (130-450); RED BLOOD COUNT 5.37 10^6/uL (4.70-6.10); RED CELL DISTRIBUTION WIDTH 15.7 % (12.0-15.0); WHITE BLOOD COUNT 6.1 x10^3/uL (4.8-10.8)
[2023-11-08 15:27] LABS: % IRON SATURATION 22 % (20-50); CHOL/HDL RATIO 4.2 (<5.0); CHOLESTEROL 178 mg/dL; HDL CHOLESTEROL 42 mg/dL; IRON 74 ug/dL (50-212); LDL CHOLESTEROL,CALCULATED 87 mg/dL; LDL/HDL RATIO 2.1 (<3.6); TOTAL IRON BINDING CAPACITY 340 ug/dL (250-450); TRANSFERRIN 243 mg/dL (203-362); TRIGLYCERIDES 243 mg/dL (48-352); VLDL CHOLESTEROL 49 mg/dL
[2023-11-08 16:14] LABS: FERRITIN 18.2 ng/mL (23.9-336.2)
== END 2023-11-08 10:35 | disposition home or self-care (01) ==
LOC: LAB.S 10:34
PROVIDERS: ATTEND Nurse Practitioner Acute Care
DX: E78.5 Hyperlipidemia, unspecified (principal); D64.9 Anemia, unspecified
CPT/HCPCS: 36415; 80061; 82728; 83540; 83721; 84466; 85025

== ENCOUNTER 2024-04-23 08:00 | Outpatient (CLI) | payer MEDICAID | END 2024-04-23 23:59 | disposition home or self-care (01) | LOC: LAB.S 08:00 | PROVIDERS: ATTEND Registered Nurse | DX: L02.91 Cutaneous abscess, unspecified (principal) | CPT/HCPCS: 87070; 87077; 87205 ==